=== PATIENT | male | born 1990 | race Caucasian/White ===

== ENCOUNTER 2023-07-13 01:34 | Emergency (ER) | payer OTHER ==
[~2023-07-13] VITALS: Ht 177.8 cm; Wt 75.0 kg
[2023-07-13 01:37] VITALS: TEMP 98.2; O2SAT 100
[2023-07-13 01:46] VITALS: BP 137/91; PULSE 100; RESP 16
[2023-07-13] MEDS: HYDROCODONE/ACETAMINOPHEN 5/325MG TABLET PO STA (01:46)
[2023-07-13] MEDS: TETANUS, DIPHTHERIA, PERTUSSIS VAC/PF 0.5ML (>10YR OLD) IM ONE (02:00)
[2023-07-13] MEDS ORDERED: CEPH500C2 MT (03:34)
== END 2023-07-13 04:12 | disposition home or self-care (01) ==
LOC: ER 01:34
DX: S01.01XA Laceration without foreign body of scalp, initial encounter (principal); Y04.0XXA Assault by unarmed brawl or fight, initial encounter; Y93.89 Activity, other specified; Y92.89 Other specified places as the place of occurrence of the external cause; Y99.8 Other external cause status
CPT/HCPCS: 70450; 70486; 90715; 12002; 90471; 99285; Z7610